=== PATIENT | female | born 1940 | race Caucasian/White ===

== ENCOUNTER 2019-11-28 14:00 | Outpatient (RCR) | payer MEDICARE, OTHER, SELFPAY ==
--- NOTE | 2019-11-16 10:36 | PTOPEVAL ---
PHYSICAL THERAPY EVALUATION AND PLAN OF CARE 11-16-2019 The PT evaluation was completed for the diagnosis of lumbar pain with radicular into L LE. The plan of treatment is for 2x/week for 2 weeks. Thank you for referring Areli to [facility]. Please review, sign, date and return this plan of care ROSENDO. I agree with and certify that the following plan of care is medically necessary. Referring Physician Date Attending Provider: Kevin Santiago MD *PT Outpatient Evaluation Start: 11/16/19 09:42 Document 11/16/19 09:42 MARY (Rec: 11/16/19 10:30 MARY [id number]) Therapy Assessment Status Assessment Status Assessment Status Evaluation Outpatient Past Medical History Neurological History Hx Neurological Disorders No Significant History Cardiovascular History Hx Cardiac Disorders No Significant History Respiratory History Hx Respiratory Disorders No Significant History Gastrointestinal History Hx Gastrointestinal Disorders No Significant History Genitourinary History Hx Bladder Surgery Yes: bladder suspension Musculoskeletal History Hx Arthritis Yes: B arthritis feet/pain- foot dr follow and want do surg Hx Joint Replacement Yes: B TKR Endocrine History Hx Endocrine Disorders No Significant History HEENT History Hx Other HEENT Disorders Yes: wear glasses Other History Hx Other Surgeries Yes: B leg vein surgery entire legs > 20 yr ago Evaluation Information Problem Diagnosis low back pain, radicular Onset about one year ago Subjective Information reports gradual increase in Query Text:As Reported By Patient/ back pain; no injury or trauma Family to back; reports recent xrays of her B TKR- no issues with them and B feet- have arthritis and foot dr wants to do surgery- she is holding off on surgery; Previous Treatments Previous Treatments For This Problem no previous PT for LBP Prior Level of Function Activity Level (Last 3 Months) Occupation retired Hand Dominance Right Activity of Daily Living Ability Independent Indoor/Home Mobility Independent Community Mobility Independent Stairs Ability Independent Functional Cognition (Planning, Shopping Independent , Taking Medications) Cooking Yes Cleaning Yes Laundry Yes Shopping Yes Driving Yes Home Setting Home Type House,Multiple Levels Environmental
--- NOTE | 2019-11-30 09:58 | PCPTNOTE ---
PHYSICAL THERAPY DISCHARGE 11-30-2019 Attending Provider: Kevin Santiago MD Patient:Areli Muro Date of :1940 Mrs. Muro has received 3 Physical Therapy sessions, from November 15 to , for the diagnosis of low back pain. She called and canceled her remaining appointments, due to the coronavirus. Her HEP was reviewed with her on the phone. She is to continue with HEP, using heat and stretching to manage her pain. She will be discharged from therapy at this time. The goals were not assessed. Thank you for referring Areli to [facility]. Please review, sign, date and return this discharge summary ROSENDO. I have been updated about the patient's current status and I agree with discharge from the above service at this time. Referring Physician Date
== END 2019-11-30 14:28 | disposition home or self-care (01) ==
LOC: ANHPT 14:00
PROVIDERS: PCP Internal Medicine; Visit Provider Orthopaedic Surgery
DX: M54.16 Radiculopathy, lumbar region (principal); M79.605 Pain in left leg
CPT/HCPCS: 97110; 97140; 97161

== ENCOUNTER 2020-10-03 13:42 | Outpatient (CLI) | payer MEDICARE, SELFPAY ==
--- NOTE | ~2020-10-03 | MM_ITS ---
EXAMINATION: MM screening norma BI w mirian HISTORY: Screening mammogram TECHNIQUE: Craniocaudal and mediolateral oblique 3-D tomosynthesis images were obtained and synthetic 2-D images were generated. CAD analysis was submitted and interpreted. COMPARISON: 720 , 12/30/2017 bilateral digital screening mammogram examinations BREAST PARENCHYMAL COMPOSITION: There are scattered areas of fibroglandular density. FINDINGS: Possible new 4 mm opacity in the central mid left breast on cc view. Recommend diagnostic l eft mammogram, with ultrasound if required. Otherwise there Is no evidence of suspicious mass, calcification, or architectural distortion to sugg est malignancy in either breast. There has been no other suspicious interval change. Bilateral arteri al calcifications. IMPRESSION: 1. Possible new 4 mm opacity, left breast 2. Diagnostic left mammogram is recommended, with ultrasound if required BI-RADS Category 0: Incomplete: Needs additional imaging evaluation. Reviewed, dictated and finalized at location A. 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
--- NOTE | ~2020-10-03 | DEXA_ITS ---
Bone Density Report Name: Areli Muro Age: 80 Sex: Female Ethnicity: White Date of : 1940 Indication: postmenopausal; height loss; Referring Provider: RENUKA DE OLIVEIRA Study: Bone densitometry was performed. Exam Date: October 03, 2020 Accession number: [id number] Bone Density: Region BMD T-score Z-score Classification AP Spine (L1, L2, L3) 1.047 0.3 2.8 Normal Femoral Neck (Left) 0.760 -0.8 1.5 Normal Total Hip (Left) 0.928 -0.1 1.9 Normal Total Hip Bilateral Avg 0.890 -0.4 1.6 Normal Femoral Neck (Right) 0.757 -0.8 1.4 Normal Total Hip (Right) 0.851 -0.7 1.3 Normal World Health Organization criteria for BMD impression classify patients as: Normal (T-score at or above -1.0), Osteopenia (T-score between -1.0 and -2.5), or Osteoporosis (T-score at or below -2.5). 10-year Fracture Risk: FRAX not reported because: All T-scores for Spine Total, Hip Total, Femoral Neck at or above -1.0 Previous Exams: Region Exam Age BMD T-score BMD Change BMD Change Date g/cm2 vs Baseline vs Previous AP Spine(L1, L2, L3) 10/03/2020 80 1.047 0.3 0.173(19.8%)# 0.037(3.7%)* 12/09/2016 76 1.010 -0.1 0.136(15.6%)# 0.136(15.6%)# 02/06/2005 64 0.874 -1.3 Total Hip(Left) 10/03/2020 80 0.928 -0.1 0.144(18.3%)# -0.016(-1.7%) 12/09/2016 76 0.944 0.0 0.160(20.4%)# 0.160(20.4%)# 02/06/2005 64 0.784 -1.3 Total Hip(Right) 10/03/2020 80 0.851 -0.7 0.038(4.7%)# -0.040(-4.5%)* 12/09/2016 76 0.891 -0.4 0.078(9.6%)# 0.078(9.6%)# 02/06/2005 64 0.813 -1.1 *Denotes significance at 95% confidence level, LSC for AP Spine = 0.022 g/cm2, LSC for Total Hip = 0.027 g/cm2 Clinical Information Provided by Patient: Has used the following medications: Vitamin D, Calcium Patient maximum height was 67.0 Menopause Age: 53 No regular weight bearing exercise Onset of menses at age 15 Number of children 3 Impression: The patient has normal bone mass. The BMD for the Total Hip(Right) decreased, changing by -4.5% since the last DXA exam. Discussion: BONE DENSITY IS ABOVE THE MINIMUM DESIRABLE LEVEL AT ALL SKELETAL SITES TESTED. This patient?s bone mineral density is above the minimum desirable level (T-score -1.0 or better) at all sites measured. The patient should follow a healthful lifestyle (good nutrition with adequate calcium and vitamin D, and appropriate weight-bearing exercise). Follow-Up: Consider repeating this study in
== END 2020-10-03 13:43 | disposition home or self-care (01) ==
LOC: ANHIMG 13:46
PROVIDERS: PCP Internal Medicine; Visit Provider Internal Medicine
DX: Z12.31 Encounter for screening mammogram for malignant neoplasm of breast (principal); Z78.0 Asymptomatic menopausal state; R92.8 Other abnormal and inconclusive findings on diagnostic imaging of breast
CPT/HCPCS: 77063; 77067; 77080

== ENCOUNTER 2020-12-03 11:24 | Outpatient (CLI) | payer MEDICARE, OTHER, SELFPAY ==
--- NOTE | ~2020-12-03 | MMUS_ITS ---
EXAMINATION: MM diagnostic norma LT w mirian, US breast LT limited HISTORY: Left breast mass on screening mammogram TECHNIQUE: Additional 3-D tomosynthesis images of the left breast were performed and synthetic 2-D im ages were generated. CAD analysis was submitted and interpreted. High resolution limited left breast ultrasound was performed. COMPARISON: 10/03/2020, 03/28/2019, 12/30/2017 FINDINGS: MAMMOGRAPHIC FINDINGS: No persistent mass is identified with spot compression of the left breast. There is no suspicious arc hitectural distortion or calcification. ULTRASOUND: There is no evidence of focal abnormal solid or cystic mass in the vicinity of the mammographic findi ng in question. A 4 mm cyst is noted at the 5:00 location 3 cm from the nipple. IMPRESSION: 1. No mammographic or sonographic evidence of malignancy. 2. Recommend routine screening mammography in one year. BI-RADS Category 2: Benign finding(s). Reviewed, dictated and finalized at location A. IMPRESSION: 1. No mammographic or sonographic evidence of malignancy. 2. Recommend routine screening mammography in one year. BI-RADS Category 2: Benign finding(s).
== END 2020-12-03 11:25 | disposition home or self-care (01) ==
PROVIDERS: PCP Internal Medicine; Visit Provider Internal Medicine
DX: N60.02 Solitary cyst of left breast (principal)
CPT/HCPCS: 76642; 77061; 77065; G0279

== ENCOUNTER → 2021-06-10 03:12 | Outpatient (CLI) | payer MEDICARE, OTHER, SELFPAY ==
[2021-06-12 07:19] LABS: SARS-CoV-2 RNA PCR Negative
== END ==
PROVIDERS: PCP Internal Medicine; Visit Provider Internal Medicine
DX: Z20.822 Contact with and (suspected) exposure to COVID-19 (principal)
CPT/HCPCS: C9803; U0003; U0005

== ENCOUNTER 2021-12-19 14:33 | Outpatient (CLI) | payer MEDICARE, SELFPAY ==
--- NOTE | ~2021-12-19 | MM_ITS ---
EXAMINATION: MM screening norma BI w mirian HISTORY: Screening TECHNIQUE: Craniocaudal and mediolateral oblique 3-D tomosynthesis images were obtained and synthetic 2-D images were generated. CAD analysis was submitted and interpreted. COMPARISON: Comparison to multiple prior studies sequentially, with oldest reviewed study dated 12/30. BREAST PARENCHYMAL COMPOSITION: There are scattered areas of fibroglandular density. FINDINGS: There is no evidence of suspicious mass, calcification, or architectural distortion to sugg est malignancy in either breast. There has been no suspicious interval change. IMPRESSION: 1. No mammographic evidence of malignancy. 2. Recommend routine screening mammography in one year. BI-RADS Category 1: Negative Reviewed, dictated and finalized at location A.
== END 2021-12-19 14:34 | disposition home or self-care (01) ==
LOC: ANHIMG 14:35
PROVIDERS: PCP Internal Medicine; Visit Provider Internal Medicine
DX: Z12.31 Encounter for screening mammogram for malignant neoplasm of breast (principal)
CPT/HCPCS: 77063; 77067

== ENCOUNTER 2023-01-06 16:46 | Emergency (ER) | payer MEDICARE, SELFPAY ==
--- NOTE | ~2023-01-06 | CT_ITS ---
EXAMINATION: CT lumbar spine wo con DATE: 01/06/2023 17:44 INDICATION: fall 4 weeks ago, L low back pain down leg . TECHNIQUE: Computed tomography (CT) of the lumbar spine was performed without intravenous contrast. A utomated exposure control and iterative reconstruction technique were employed. The dose-length produ ct was 1394.39 mGy-cm. COMPARISON: X-ray L-spine 04/19/2012. FINDINGS: 11 mm intermediate density exophytic left midpole renal lesion. Atherosclerotic calcificati ons. Diverticulosis. Lumbar scoliosis. 5 nonrib-bearing lumbar-type vertebral bodies. Pedicles intact . Normal vertebral body alignment. Vertebral body heights preserved. Multilevel mild-moderate degener ative disc disease. Multilevel severe facet arthropathy. Moderate central canal narrowing at L3-4 and L4-5. No severe neural foraminal narrowing. Left S1 Tarlov cyst. IMPRESSION: No acute fracture or traumatic malalignment in the lumbar spine. Indeterminate left renal lesion, rec ommend timely outpatient CT or MRI, without and with contrast for further evaluation. Reviewed, dictated and finalized at location K. IMPRESSION: No acute fracture or traumatic malalignment in the lumbar spine. Indeterminate left renal lesion, recommend timely outpatient CT or MRI, without and with cont rast for further evaluation.
--- NOTE | ~2023-01-06 | CT_ITS ---
EXAMINATION: CT pelvis wo con DATE: 01/06/2023 18:09 INDICATION: Fall 4 weeks ago, left low back, groin, and hip pain. TECHNIQUE: Computed tomography (CT) of the pelvis was performed without intravenous contrast. Automat ed exposure control and iterative reconstruction technique were employed. The dose-length product was 822.93 mGy-cm. Sagittal and coronal reformats from this pelvic examination were included with the co ncurrent CT lumbar spine examination. COMPARISON: X-ray right hip, 11/11/2010. FINDINGS: Uncomplicated small fat-containing umbilical hernia. Atherosclerotic arterial calcification s. Diverticulosis. Lumbar degenerative disc disease. Left S1 Tarlov cyst. Moderate osteitis pubis. Os teopenia. No fracture or dislocation. Moderate right and mild left SI joint degenerative change. Mild bilateral hip osteoarthritis. No significant soft tissue contusion or hematoma. IMPRESSION: No acute osseous finding in the pelvis Reviewed, dictated and finalized at location K.
[2023-01-06 16:54] VITALS: BP 149/70; PULSE 55; RESP 18; TEMP 36.7; O2SAT 99
--- NOTE | 2023-01-06 17:04 | ED.EXTPRO ---
HPI - Extremity Problem General Chief complaint: Extremity Problem,Nontraumatic <CARMITA Leal Last Filed: 01/07/23 02:07> Stated complaint: back pain, leg pain <CARMITA Leal Last Filed: 01/07/23 02:07> Time Seen by Provider: 01/06/23 17:03 <CARMITA Leal Last Filed: 01/07/23 02:07> Source: patient <CARMITA Leal Last Filed: 01/07/23 02:07> Mode of arrival: ambulatory <CARMITA Leal Last Filed: 01/07/23 02:07> Limitations: no limitations <CARMITA Leal Last Filed: 01/07/23 02:07> History of Present Illness HPI Narrative: Patient is an 82 y/o female who presents to the ED with c/o L low back pain. Patient reports she fell and landed directly on her L hip/buttocks 4-6 weeks ago. She was not medically evaluated at that time. Patient had pain in her left hip initially, but was able to ambulate. Over the last 1-1.5 weeks, patient has developed pain in her left low back, radiating to her left buttock and down her left posterior leg. Pain worse over past 2-3 days, aggravated with ambulating, sitting, bending. Denies any alleviating factors. She has been taking Tylenol without much relief. Denies any new injury. Denies weakness in her lower extremities, bowel or bladder incontinence, saddle anesthesia, numbness, abdominal pain. <CARMTIA Leal Last Filed: 01/07/23 02:07> Related Data Home medications: Home Medications Medication Instructions Recorded Confirmed aspirin 81 mg tablet,delayed 81 mg PO DAILY 08/23/19 09/25/22 release (Aspir-) cholecalciferol (vitamin D3) 125 5,000 unit PO DAILY 08/23/19 09/25/22 mcg (5,000 unit) capsule magnesium oxide 400 mg PO DAILY 08/23/19 09/25/22 calcium carbonate 500 mg calcium 500 mg PO BID 10/31/19 09/25/22 (1,250 mg) tablet (Oyster Shell Calcium) multivitamin 1 tablet PO DAILY 10/31/19 09/25/22 inulin 2 gram chewable tablet g PO DAILY 09/25/22 09/25/22 (Fiber Gummies) melatonin 5 mg capsule mg PO DAILY 09/25/22 09/25/22 <Elisa Wang PA-C - Last Filed: 01/07/23 02:07> Allergies/Adverse reactions: Allergies Allergy/AdvReac Type Severity Reaction Status Date / Time Penicillins Allergy Unknown hives Verified 09/25/22 09:41 procaine Allergy Unknown pass out Verified 09/25/22 09:41 Sulfa (Sulfonamide Allergy Unknown swelling Verified 09/25/22 09:41 Antibiotics) and itching <Elisa Wang PA-C - Last Filed: 01/07/23 02:07> Review of Systems Review of Systems: CONSTITUTIONAL: Denies fever, chills, or sweats. CARDIOVASCULAR: Denies chest pain. RESPIRATORY: Denies dyspnea. GASTROINTESTINAL: Denies abdominal pain, nausea, vomiting GENITOURINARY: Denies dysuria or hematuria. MUSCULOSKELETAL: See HPI. NEUROLOGIC: See HPI. <Elisa Wang PA-C - Last Filed: 01/07/23 02:07> All systems reviewed & are unremarkable except as noted in HPI and below <Elisa Wang PA-C - Last Filed: 01/07/23 02:07> [facility] Past Medical History Medical History: Medical History Allergies History of back problems History of gout Hypertension Kidney disease Skin problem <Elisa Wang PA-C - Last Filed: 01/07/23 02:07> Surgical History Surgical History: Surgical History H/O breast surgery (~1985) 1986 History of total bilateral knee replacement <Elisa Wang PA-C - Last Filed: 01/07/23 02:07> Family History Family History: Family History Father Cerebrovascular accident, Onset Age: 80 Mother Family history of lung disease, Onset Age: 75 Family history of lung cancer Cancer Grandparent Heart disease Other Family history of tremor <Elisa Wang, P
[2023-01-06] MEDS: IBUPROFEN 400 MG TABLET PO (17:49)
== END 2023-01-06 20:06 | disposition home or self-care (01) ==
PROVIDERS: Emergency Provider Physician Assistant; PCP Family Medicine
DX: M54.42 Lumbago with sciatica, left side (principal); N28.89 Other specified disorders of kidney and ureter; I10 Essential (primary) hypertension; M10.9 Gout, unspecified; Z96.653 Presence of artificial knee joint, bilateral; Z79.82 Long term (current) use of aspirin; Z79.4 Long term (current) use of insulin
CPT/HCPCS: 72131; 72192; 99284; A9270

== ENCOUNTER 2023-01-14 09:25 | Outpatient (CLI) | payer MEDICARE, SELFPAY ==
--- NOTE | ~2023-01-14 | CT_ITS ---
EXAMINATION: CT abdomen pelvis wo/w con DATE: 01/14/2023 10:49 INDICATION: 11 mm indeterminate exophytic lesion at the midpole the left kidney. TECHNIQUE: Computed tomography (CT) of the abdomen and pelvis was performed without and with 100 mL O mnipaque-350 intravenous contrast. Automated exposure control and iterative reconstruction technique were employed. The dose-length product was 1108.77 mGy-cm. COMPARISON: CT dated 01/06/2023 FINDINGS: Calcified left lower lobe nodule along with a few small splenic calcifications consistent with old gr anulomatous disease. Minimal bibasilar atelectasis. Heart size is normal. Atherosclerotic coronary ar dafne calcifications. No pericardial or pleural effusion. Small sliding-type hiatal hernia. Low densit y hepatic cysts the larger measuring 1.4 cm the left hepatic lobe. Gallbladder, pancreas and bilatera l adrenal glands are normal. 1.3 cm cyst in the left kidney and 5 mm cyst at the periphery of the rig ht kidney. There is a mildly lobular contour to the left kidney which may account for the artifactual appearance of an exophytic lesion on prior noncontrast study. No concerning renal lesions identified . A few diverticula along the sigmoid colon without adjacent inflammatory stranding to suggest divert iculitis. No bowel obstruction. What may be the normal appendix is seen along the posterior inferior margin of the cecum. There is no pericecal infiltration to suggest acute appendicitis. Tiny fat-conta ining umbilical hernia and small bilateral fat-containing inguinal hernias. No free intraperitoneal g as or fluid. No pathologically enlarged abdominal or pelvic lymphadenopathy. There is some fatty atro phy of the bilateral gluteus medius and minimus muscles with proximal retraction of the myotendinous junctions consistent with likely chronic partial tears of the more distal tendons. Mild thoracolumbar levoscoliosis with moderate spondylosis. IMPRESSION: 1. Couple simple appearing bilateral renal cysts. The lesion of concern on prior noncontrast study ap pears to result from a normal mildly lobular contour to the left kidney. 2. Small sliding-type hiatal hernia. 3. Tiny fat-containing umbilical and small fat-containing bilateral inguinal hernias. 4. Findings suggesting chronic partial tears of the bilateral diffuse medius and minimus tendons. Reviewed, dictated and finalized at location L. IMPRESSION: 1. Couple simple appearing bilateral renal cysts. The lesion of concern on prio r noncontrast study appears to result from a normal mildly lobular contour to t he left kidney. 2. Small sliding-type hiatal hernia. 3. Tiny fat-containing umbilical and small fat-containing bilateral inguinal he rnias. 4. Findings suggesting chronic partial tears of the bilateral diffuse medius an d minimus tendons.
[2023-01-14 10:35] LABS: Estimated Glomerular Filt Rate 48
== END 2023-01-14 09:26 | disposition home or self-care (01) ==
PROVIDERS: PCP Family Medicine; Visit Provider Nurse Practitioner
DX: N28.89 Other specified disorders of kidney and ureter (principal); K44.9 Diaphragmatic hernia without obstruction or gangrene; K42.9 Umbilical hernia without obstruction or gangrene
CPT/HCPCS: 74178; Q9967

== ENCOUNTER → 2023-01-21 13:03 | Outpatient (CLI) | payer MEDICARE, OTHER, SELFPAY ==
--- NOTE | ~2023-01-21 | XR_ITS ---
XR lumbar spine 2-3V 01/21/2023 13:32 Indication: Back pain Procedure: 3 views lumbar spine Comparison: No prior studies for comparison. Findings: There is disc narrowing at all lumbar levels. There is levoscoliosis centered at the thorac olumbar junction. There are prominent marginal osteophytes at L2-3 through L4-5. There is multilevel facet hypertrophy. Sacral foramen are symmetric. No acute fracture or traumatic m alalignment. Vertebral body heights are maintained. Impression: 1: Severe lumbar spondylosis with levoscoliosis. Reviewed, dictated and finalized at location L. Impression: 1: Severe lumbar spondylosis with levoscoliosis.
== END ==
PROVIDERS: PCP Family Medicine; Visit Provider Nurse Practitioner
DX: M47.816 Spondylosis without myelopathy or radiculopathy, lumbar region (principal)
CPT/HCPCS: 72100

== ENCOUNTER 2023-04-26 12:16 | Outpatient (CLI) | payer MEDICARE, SELFPAY ==
--- NOTE | ~2023-04-26 | CT_ITS ---
EXAMINATION: CT brain wo con DATE: 04/26/2023 12:37 INDICATION: Other amnesia. TECHNIQUE: Computed tomography (CT) of the head was performed without intravenous contrast. The mA wa s adjusted according to patient size. Iterative reconstruction technique was employed. The dose-lengt h product was 605.33 mGy-cm. COMPARISON: None FINDINGS: There is no intracranial hemorrhage, acute infarction, or abnormal intracranial mass lesion . The ventricles are normal in size. The orbits are normal. 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 The mastoid air cells are normal. IMPRESSION: 1. Normal brain. 2. Chronic sinusitis. Reviewed, dictated and finalized at location A.
== END 2023-04-26 12:17 | disposition home or self-care (01) ==
PROVIDERS: PCP Family Medicine; Visit Provider Family Medicine
DX: R06.83 Snoring (principal); R41.3 Other amnesia; R41.89 Other symptoms and signs involving cognitive functions and awareness; J32.9 Chronic sinusitis, unspecified
CPT/HCPCS: 70450

== ENCOUNTER 2023-07-06 07:59 | Outpatient (CLI) | payer MEDICARE, SELFPAY ==
--- NOTE | ~2023-07-06 | MM_ITS ---
EXAMINATION: MM screening norma BI w mirian HISTORY: Screening mammogram TECHNIQUE: Craniocaudal and mediolateral oblique 3-D tomosynthesis images were obtained and synthetic 2-D images were generated. CAD analysis was submitted and interpreted. COMPARISON: 12/19/2021 bilateral screening mammogram 12/03/2020 diagnostic left mammogram and limited left breast ultrasound 10/03/2020, 03/28/2019 bilateral screening mammogram examinations BREAST PARENCHYMAL COMPOSITION: There are scattered areas of fibroglandular density FINDINGS: No suspicious mass, architectural distortion, malignant calcification, skin thickening or r etraction of either breast is detected. There are low-density benign appearing circumscribed opacities including the following: Right breast axillary tail: 3.4 x 6.5 mm circumscribed low-density benign-appearing intramammary lymp h node, with radiolucent hilus Right breast: 3.3 x 4 mm circumscribed opacity with suggestion of a radiolucent hilus, possibly a nilton ign intramammary lymph node. Left breast: 2.8 x 4.3 mm circumscribed low-density opacity in the lower outer quadrant, benign in ap pearance IMPRESSION: 1. Benign findings 2. Recommend routine screening mammography in one year. BI-RADS Category 2: Benign finding(s). Reviewed, dictated and finalized at location A.
== END 2023-07-06 08:00 | disposition home or self-care (01) ==
LOC: ANHIMG 08:00
PROVIDERS: PCP Nurse Practitioner; Visit Provider Family Medicine
DX: Z12.31 Encounter for screening mammogram for malignant neoplasm of breast (principal); R92.8 Other abnormal and inconclusive findings on diagnostic imaging of breast
CPT/HCPCS: 77063; 77067

== ENCOUNTER 2023-08-19 11:40 | Outpatient (CLI) | payer MEDICARE, SELFPAY ==
--- NOTE | ~2023-08-19 | DEXA_ITS ---
Bone Density Report Name: GÓMEZ KHOURY Age: 83 Sex: Female Ethnicity: White Date of : 1940 Indication: postmenopausal; screening for osteoporosis; height loss; Referring Provider: MICHELLE HERNANDEZ Study: Bone densitometry was performed. Exam Date: August 19, 2023 Accession number: [id number] Bone Density: Region BMD T-score Z-score Classification AP Spine(L1, L2, L3) 1.139 1.1 3.8 Normal Femoral Neck (Left) 0.703 -1.3 1.1 Osteopenia Total Hip (Left) 0.839 -0.8 1.3 Normal Femoral Neck (Right) 0.680 -1.5 0.9 Osteopenia Total Hip (Right) 0.824 -1.0 1.2 Normal Total Hip Mean 0.831 -0.9 1.3 Normal World Health Organization criteria for BMD impression classify patients as: Normal (T-score at or above -1.0), Osteopenia (T-score between -1.0 and -2.5), or Osteoporosis (T-score at or below -2.5). 10-year Fracture Risk(1): Major Osteoporotic Fracture 13% Hip Fracture 3.2% Reported Risk Factors: [place] (), Neck BMD=0.680, BMI=33.0 (1) FRAX(R) Version 3.08. Fracture probability calculated for an untreated patient. Fracture probability may be lower if the patient has received treatment. Previous Exams: Region Exam Age BMD T-score BMD Change BMD Change Date g/cm2 vs Baseline vs Previous AP Spine (L1-L3) 08/19/2023 83 1.139 1.1 0.129 (12.8%)* 0.092 (8.8%)* 10/03/2020 80 1.047 0.3 0.037 (3.7%)* 0.037 (3.7%)* 12/09/2016 76 1.010 -0.1 Total Hip(Left) 08/19/2023 83 0.839 -0.8 -0.106 (-11.2% -0.089 (-9.6%) 10/03/2020 80 0.928 -0.1 -0.016 (-1.7%) -0.016 (-1.7%) 12/09/2016 76 0.944 0.0 Total Hip(Right) 08/19/2023 83 0.824 -1.0 -0.067 (-7.5%) -0.027 (-3.2%) 10/03/2020 80 0.851 -0.7 -0.040 (-4.5%) -0.040 (-4.5%) 12/09/2016 76 0.891 -0.4 *Denotes significance at 95% confidence level, LSC for AP Spine = 0.022 g/cm2, LSC for Total Hip = 0.027 g/cm2 Clinical Information Provided by Patient: Has used the following medications: Vitamin D, Calcium Patient maximum height was 67 Menopause Age: 56 Drinks caffeinated beverages Onset of menses at age 15 Number of children 3 Impression: The patient has low bone mass, based on the Right Femoral Neck T-score. The patient has an estimated ten-year risk of hip fracture of 3.2% and an estimated ten-year risk of major fracture of 13%, based on the WHO FRAX algorithm. The BMD for the Total Hip(Left) decreased, changing by -9.6% sin
== END 2023-08-19 11:41 | disposition home or self-care (01) ==
PROVIDERS: PCP Nurse Practitioner; Visit Provider Family Medicine
DX: M85.89 Other specified disorders of bone density and structure, multiple sites (principal); Z78.0 Asymptomatic menopausal state
CPT/HCPCS: 77080

== ENCOUNTER 2025-01-19 07:52 | Outpatient (CLI) | payer MEDICARE, SELFPAY ==
--- OUTSIDE RECORDS SUMMARY | 2025-01-19 07:55 | XMS_ITS | CONTINUITY OF CARE DOCUMENT ---
Author Name charleen villaseñor Address Unknown Organization [facility] Address [address] [place] [address] Phone [phone] Care Team Providers Care Clinical Nurse Manager Name Role Phone Chacorta Valdes MD Unavailable [phone] Chacorta Valdes MD Unavailable [phone] INSURANCE PROVIDERS Payer name Policy type / Coverage type [place] red republican ID [employer] [id number] [place] MEDIC[place] Medicare [id number] TREATMENT PLAN Date Name Covid Antibody IgA ( LC) Covid Antibody IgM ( LC)
--- OUTSIDE RECORDS SUMMARY | 2025-01-19 07:55 | XMS_ITS | Clinical Summary ---
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 Gender Identity Not on file Sexual Orientation Not on file Last Filed Vital Signs Vital Sign Reading Time Taken Comments Blood Pressure 140/88 12/05/2013 8:52 AM CDT Pulse - - Temperature - - Respiratory Rate - - Oxygen Saturation - - Inhaled Oxygen Concentration - - Weight 103.9 kg (229 lb) 12/05/2013 8:52 AM CDT Height 166.4 cm (5' 5.5 ) 12/05/2013 8:52 AM CDT Body Mass Index 37.53 12/05/2013 8:52 AM CDT Plan of Treatment Health Maintenance Due Date Last Done Comments Zoster Vaccines (1 of 2) 1991 Dexa Scan (General) 2006 DTaP, Tdap and Td Vaccines ( 1 - Tdap) 05/12/2011 05/11/2011 Pneumococcal Vaccine: 50+ Ye ars (2 of 2 - PCV) 05/11/2012 05/11/2011 RSV Immunization or 60+ Years (1 - 1-dose 75+ series) 2016 COVID-19 Vaccine ( - 2023-2 5 season) 2024 Meningococcal B Vaccine Aged Out No l onger eligible based on patient's age to complete this topic Meningococcal Vaccine Aged Out No og rain eligible based on patient's age to complete this topic RSV Immunizations Under 20 Months Aged Out No longer eligible based on patient's age to complete this topic
--- OUTSIDE RECORDS SUMMARY | 2025-01-19 07:55 | XMS_ITS | Continuity of Care Document ---
Author Organization [facility] Address [address] [place] [address] Phone Care Team Providers Care Sat Instructor Name Role Phone Lo Mott Unavailable Unavailable Procedures Procedure Date Eye Exam & Treatment Office/outpatient Visit, Est BF Polycarb Sphcyl Gary To +/-4d .12-2d [facility] [employer] Purchases [...] Diagnoses Date Provider Providers Copied on Encounter [facility], [address] [place] [address] [address], [place], [place], [id number], [place] tel:[phone] [facility] [place] No Information 4-200 9 Tiera Blanchard. [address] , [address], [place], [address], [place]. tel:[phone] Office/outpat ient Visit, Est [facility], [address] [place] [address] [address], [place], [place], [id number], [place] tel:[phone] [facility] [place] No Information Sep-1 8-200 8 Tiera Workman [address] , [address], [place], [place], [facility], . tel:[phone] [facility], [address], [place], [place], [id number], [place] tel:[phone] [facility] [place] No Information Mar-2 4-200 8 [facility] [employer] . [address], [address], [place], [place], [id number], [place]. tel:[phone] Referring Provider: Lo Simpson, [address] [place], [place] [address]ate [address], [place], [place], [facility]. tel:[phone] sulting Provider: Keegan Dias [address] [place], [place] [address]ate [place], [place], [place], [facility]. tel:[phone] [facility], [address], [place], [place], [id number], [place] tel:[phone] [facility] [place] No Information Mar-2 0-200 8 Tiera Workman [facility] , [address], [place], [place], [facility], [place]. tel:[phone] [facility], [address], [place], [place], [id number], [place] tel:[phone] [facility] No Information Feb-2 1-200 8 Tiera Workman [address] [place] , [address], [place], [place], [facility], [place]. tel:[phone] [facility], [address], [place], [place], [id number], [place] tel:[phone] [facility] No Information Feb-1 4-200 8 Tiera Workman [address], [address], [place], [address], [place]. tel:[phone] [facility], [address], [place], [place], [id number], [place] tel:[phone] [facility] No Information 3-200 8 Tiera Blanchard. [address] , [address], [place], [place], [facility], [place]. tel:[phone] Office/outpat ient Visit, [facility], [address], [place], [place], [id number], [place] tel:[phone] [facility] No Information 1200 8 Tiera Blanchard. [address] [place] , [address], [place], [facility], [place]. tel:[phone] Referring Provider: Lo Simpson, [address], [place], [facility]. tel:[phone] [facility], [address] [place] [address] [address], [place], [place], [id number], [place] tel:[phone] [facility] No Information Dec-2 0-200 7 Tiera Blanchard. [address] , [address], [place], [facility], [place]. tel:[phone] [facility], [address], [place], [place], [id number], [place] tel:[phone] [facility] No Information 6-200 7 Hailee Kuhn. [address], [place], [place], [id number], [place]. tel:[phone] [facility], [address], [place], [place], [id number], [place] tel:[phone] [facility] No Information Apr-2 6-200 7 Tiera Blanchard. [address] , [address], [place], [address], [place]. tel:[phone] Family History Family Member Type Diagnosis Age At Onset No Information Payers Payer name Insurance type Covered republican ID Authoriza tion(s) Medicare [facility] [id number] [facility] [id number] Social History Type Description Quantity Date Captured [...]
--- OUTSIDE RECORDS SUMMARY | 2025-01-19 07:56 | XMS_ITS | Continuity of Care Document ---
Author Organization [employer] Address [address] [place] [address] Phone Care Team Providers Care Electronic System Engineer Name Role Phone Leo Nava NP Unavailable [...] + Trivalent OFFICE/OUTPATIENT VISIT, EST OFFICE/OUTPATIENT VISIT, [facility] Advance Directives Directive Yes / No Effective Date File Name No Information Encounters Encounter Description Practice Location Reason(s) For Visit Diagnoses Date Provider Providers Copied on Encounter [facility], [address], [place], [place], [id number], [place] tel:[phone] [facility] Spot on buttocks (chief complaint) Abscess of right buttockCellulitis of buttock Sep-2 3 Elijah Cervantes. [address] [place], [address]. tel:[phone] Referring Provider: Leo Nava, [address] [place], [address]. tel:[phone] OFFICE/OUTPAT IENT VISIT, [facility], [address], [place], [place], [id number], [place] tel:[phone] [facility] UTI (chief complaint) Acute UTIHematuria, unspecified type Sep-1 9 Elijah Cervantes. [address] [place], [address]. tel:[phone] Referring Provider: Leo Nava, [address] [place], [address]. tel:[phone] [facility], [address], [place], [place], [id number], [place] tel:[phone] [facility] No Information Jun- 7 Michael Hernandes. [address] [place] [address], [address], [place]. tel:[phone] Referring Provider: Greta Simpson, [address] [place] [address], [address]. tel:[phone] OFFICE/OUTPAT IENT VISIT, [facility], [address] [place] [address], [id number], tel:[phone] [facility] thumb darken (chief complaint) Thumb injury, right, initial encounter 7 Michael Hernandes. [address] [place] [address], [address], [place]. tel:[phone] Referring Provider: Greta Simpson, [address] [place] [address], [address]. tel:[phone] [facility], [address], [id number], tel:[phone] [facility] No Information 5 Michael Hernandes. [address] [place] [address], [address], [place]. tel:[phone] Referring Provider: Greta Simpson, [address] [place] [address], [address]. tel:[phone] [facility], [address], [id number], tel:[phone] [facility] No Information 4 Elijah Cervantes. [address] [place], [address]. tel:[phone] Referring Provider: Chapo Saeed, [address] [place], [address]. tel:[phone] OFFICE/OUTPAT IENT VISIT, [facility], [address] [place] [address], [id number], tel:[phone] [facility] No Information 2 Elijah Cervantes. [address] [place], [address]. tel:[phone] Referring Provider: Leo Nava, [address] [place], [address]. tel:[phone] OFFICE/OUTPAT IENT VISIT, [facility], [address], [place], [place], [id number], tel:[phone] [facility] No Information Feb-0 8-201 0 Elijah Cervantes. [address] [place], [address]. tel:[phone] Referring Provider: Andres Younger, [address], [place], [address] . tel:[phone] Family History Family Member Type Diagnosis Age At Onset No Information Immunizations Vaccine Date Status Comments Influenza, seasonal, injectable administered Source: New Immuniza tion Record Influenza, seasonal, injectable administered Source: New Immuniza tion Record Flu Vacc 3yr + PCC administered Source: N ew Immunization Record Payers Payer name Insurance type Covered republican ID Authoriza tion(s) Medicare NGS 16112 ALL OTHERS MB [id number] [employer] Gold Plus [id number] Medicare NGS [id number] ALL OTHERS MB [id number] [place] [id number] Medicare NGS [id number] ALL OTHERS MB [id number] [employer] [place] [id number] Medicare [place] [id number] ALL OTHERS MB [id number] [employer] [place] CI [id number] Social History Type Description Quantity Date Captured [...] using PRID on it at home,is from [place] and is visiting this area Spot on [...] Mental Status Date Cognitive Assessment Orientation - [place] ed to time, place, person, situation. Patient Care Teams Name Effective Dates (start - stop) Status Members No Information
[2025-01-19 08:13] LABS: Hematocrit 45.1 % (37.0-47.0); Hemoglobin 14.1 g/dL (12.0-15.0); Mean Corpuscular HGB Conc 31.3 g/dl (32-36); Mean Corpuscular Volume 99.1 fl (80-100); Mean Platelet Volume 9.9 fl (7.4-10.4); Platelet Count Result 219 k/mm3 (150-375); Red Blood Count 4.55 M/mm3 (4.2-5.4); Red Cell Distribution Width 13.1 % (11.5-14.5); White Blood Count 4.2 K/mm3 (4.5-10.0)
[2025-01-19 08:23] LABS: Alanine Aminotransferase 17 U/L (6-35); Albumin Level 4.3 g/dL (3.5-5.1); Alkaline Phosphatase 60 U/L (38-126); Anion Gap 5 mmol/L (4-12); Aspartate Amino Transferase 23 U/L (14-36); Bilirubin,Total 0.8 mg/dL (0.2-1.3); Blood Urea Nitrogen 18 mg/dL (7-17); Calcium 9.2 mg/dL (8.4-10.2); Carbon Dioxide 30 mmol/L (22-30); Chloride 105 mmol/L (98-107); Cholesterol 204 mg/dL (0-200); Estimated Glomerular Filt Rate 58; Glucose 99 mg/dL (65-110); HDL Direct 72 mg/dL; Potassium 4.4 mmol/L (3.4-5.0); Sodium 140 mmol/L (137-145); Triglycerides 99 mg/dL (<150)
[2025-01-19 08:39] LABS: LDL Cholesterol Direct 105 mg/dL
[2025-01-19 10:24] LABS: Hemoglobin A1C 5.7 % (<5.7)
== END 2025-01-19 07:53 | disposition home or self-care (01) ==
PROVIDERS: PCP Nurse Practitioner; Visit Provider Nurse Practitioner
DX: E78.5 Hyperlipidemia, unspecified (principal); R73.03 Prediabetes
CPT/HCPCS: 36415; 80053; 80061; 83036; 85027

== ENCOUNTER 2025-06-26 15:43 | Outpatient (CLI) | payer MEDICARE, SELFPAY ==
[2025-06-26 16:14] LABS: Hematocrit 42.0 % (37.0-47.0); Hemoglobin 13.5 g/dL (12.0-15.0); Mean Corpuscular HGB Conc 32.1 g/dl (32-36); Mean Corpuscular Hemoglobin 31.2 pg (26-34); Mean Corpuscular Volume 97.0 fl (80-100); Platelet Count Result 211 k/mm3 (150-375); Red Blood Count 4.33 M/mm3 (4.2-5.4); White Blood Count 5.7 K/mm3 (4.5-10.0)
[2025-06-26 16:17] LABS: Add Urine Microscopic? YES; Appearance Urine Cloudy (Clear); Glucose Urine UA Negative (Negative); Leukocyte Esterase Ur 2+ LEU/UL (Negative); Nitrate Urine Negative (Negative); Non Pathogenic Casts 0-2; Specific Grav Ur 1.019 (1.001-1.035)
[2025-06-26 16:28] LABS: Alanine Aminotransferase 13 U/L (6-35); Albumin Level 4.2 g/dL (3.5-5.1); Alkaline Phosphatase 53 U/L (38-126); Anion Gap 6 mmol/L (4-12); Aspartate Amino Transferase 24 U/L (14-36); Bilirubin,Total 0.5 mg/dL (0.2-1.3); Blood Urea Nitrogen 19 mg/dL (7-17); Calcium 9.0 mg/dL (8.4-10.2); Carbon Dioxide 29 mmol/L (22-30); Chloride 100 mmol/L (98-107); Estimated Glomerular Filt Rate 49; Glucose 93 mg/dL (65-110); Potassium 4.2 mmol/L (3.4-5.0); Sodium 135 mmol/L (137-145); Total Protein 6.9 g/dL (6.3-8.2)
--- OUTSIDE RECORDS SUMMARY | 2025-06-26 17:16 | XMS_ITS | Clinical Summary ---
Author Organization 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 Gender Identity Not on file Sexual Orientation Not on file Last Filed Vital Signs Vital Sign Reading Time Taken Comments Blood Pressure 140/88 12/05/2013 8:52 AM CDT Pulse - - Temperature - - Respiratory Rate - - Oxygen Saturation - - Inhaled Oxygen Concentration - - Weight 103.9 kg (229 lb) 12/05/2013 8:52 AM CDT Height 166.4 cm (5' 5.5) 12/05/2013 8:52 AM CDT Body Mass Index [...] COVID-19 Vaccine ( - 2023-2 5 season) 2025 Influenza Adult (#1) 2025 06/06/2013 Meningococcal B Vaccine Aged Out No l onger eligible based on patient's age to complete this topic Meningococcal Vaccine Aged Out No og rain eligible based on patient's age to complete this topic RSV Immunizations Under 20 Months Aged Out No longer eligible based on patient's age to complete this topic
== END 2025-06-26 15:44 | disposition home or self-care (01) ==
LOC: ANHLAB 15:45
PROVIDERS: PCP Nurse Practitioner; Visit Provider Nurse Practitioner
DX: E78.5 Hyperlipidemia, unspecified (principal); I10 Essential (primary) hypertension; R41.82 Altered mental status, unspecified
CPT/HCPCS: 36415; 80053; 81001; 85027

== ENCOUNTER 2025-07-11 11:12 | Outpatient (CLI) | payer MEDICARE, SELFPAY ==
--- OUTSIDE RECORDS SUMMARY | 2009-06-06 03:00 | XMS_ITS | Continuity of Care Document ---
Author Organization [facility] [place] [address] [place] [address] Phone Care Team Providers Care Triage Specialist Name Role Phone Lo Mott Unavailable Unavailable Procedures Procedure Date Eye Exam & Treatment Office/outpatient Visit, Est BF Polycarb Sphcyl [place] To +/-4d .12-2d Vision Svcs Frames Purchases Frames Deluxe Anti-reflective Coating Polycarb Lens Per Lens Scratch Resistant Coating Post-op Follow-up Visit Post-op Follow-up Visit Post-op Follow-up Visit Remove Cataract, Insert Lens Office/outpatient Visit, Est Echo Exam Of Eye Eye Exam & Treatment Refraction Eye Exam & Treatment Eye Exam & Treatment Advance Directives Directive Yes / No Effective Date File Name No Information Encounters Encounter Description Practice Location Reason(s) For Visit Diagnoses Date Provider Providers Copied on Encounter [facility], [address] [place] [address] [address], [place], [place], [id number], [place] tel:[phone] [facility] [place] No Information 4-200 9 Tiera Blanchard. [address] [facility] , [address], [place], [address], [place]. tel:[phone] Office/outpat ient Visit, Est [facility], [address] [place] [address] [address], [place], [place], [id number], [place] tel:[phone] [facility] [place] No Information Sep-1 8-200 8 Tiera Workman [address] [facility] [place] , [address], [place], [place], [facility] [place][note 2], . tel:[phone] [facility], [address], [place], [place], [id number], [place] tel:[phone] [facility] [place] No Information Mar-2 4-200 8 [facility] . [address] [facility], [address], [place], [place], [id number], [place]. tel:[phone] Referring Provider: Lo Simpson, [address] [place], [place] [address]ate [place] [address], [place], [place], [facility] [place][note 2]. tel:[phone] sulting Provider: Keegan Dias [address] [place], [place] [address]ate [place], [place], [place], [facility] [place][note 2]. tel:[phone] [facility], [address], [place], [place], [address], [place] tel:[phone] [facility] [place] No Information Mar-2 0-200 8 Tiera Workman [facility] , [address], [place], [place], [facility] [place][note 2], [place]. tel:[phone] [facility], [address], [place], [place], [id number], [place] tel:[phone] [facility] No Information Feb-2 1-200 8 Tiera Workman [address] [facility] [place] , [address], [place], [place], [facility] [place][note 2], [place]. tel:[phone] [facility], [address], [place], [place], [id number], [place] tel:[phone] [facility] No Information Feb-1 4-200 8 Tiera Workman [address], [address], [place], [address], [place]. tel:[phone] [facility], [address], [place], [place], [id number], [place] tel:[phone] [facility] No Information 3-200 8 Tiera Blanchard. [address] [facility] , [address], [place], [place], [facility] [place][note 2], [place]. tel:[phone] Office/outpat ient Visit, [facility], [address], [place], [place], [address], [place] tel:[phone] [facility] No Information 1200 8 Tiera Blanchard. [address] [facility] [place] , [address], [place], [facility] [place][note 2], [place]. tel:[phone] Referring Provider: Lo Simpson, [address], [place], [facility] [place][note 2]. tel:[phone] [facility], [id number] [place] [address] [address], [place], [place], [address], [place] tel:[phone] [facility] No Information Dec-2 0-200 7 Tiera Blanchard. [address] [facility] , [address], [place], [facility] [place][note 2], [place]. tel:[phone] [facility], [address], [place], [place], [address], [place] tel:[phone] [facility] No Information 6-200 7 Hailee Kuhn. [address], [address], [place], [place], [address], [place]. tel:[phone] [facility], [address], [place], [place], [address], [place] tel:[phone] [facility] No Information Apr-2 6-200 7 Tiera Blanchard. [address] , [address], [place], [address], [place]. tel:[phone] Family History Family Member Type Diagnosis Age At Onset No Information Payers Payer name Insurance type Covered green party ID Authoriza tion(s) Medicare [facility] [id number] [facility] [id number] Social History Type Description Quantity Date Captured Comments Sex Female Smoking Status No Information Chief Complaint And Reason For Visit No Information Reason For Referral Reason For Referral No Information History Of Present Illness Encounter Date Complaint History Of Prese nt Illness No Information Functional Status Date Functional Assessmen t No Information Instructions Date Instruction Additional Infor mation No Information Assessments Type Assessment Date No Information Patient Care Teams Name Effective Dates (start - stop) Status Members No Information
--- OUTSIDE RECORDS SUMMARY | 2023-06-11 04:00 | XMS_ITS | Continuity of Care Document ---
Author Organization [facility] [facility] [employer] Address [address] [place] [address] Phone Care Team Providers Care Wire Wrapping Machine Operator Name Role Phone Leo Nava NP Unavailable Unavailabl e Allergies, Adverse Reactions, Alerts Substance Reaction Status Criticality PROCAINE HCL Active No Information Sulfa (Sulfonamide Antibiotics) Active No Information PENICILLIN Active No Information Medications Medication Instructions Dosage Effective Dates (start - stop) Status Comments doxycycline monohydrate 100 mg tablet take 1 tablet by oral route 2 times every day 100 MG - Active mupirocin 2 % topical ointment apply by topical route 2 times every day a small amount to the affected area Not Available - Active pravastatin 40 mg tablet take 1 tablet by oral route every day 40 MG - Active Pyridium 100 mg tablet take 1 tablet by oral route 3 times every day after meals as needed as needed 100 MG - No Longer Active Cipro 250 mg tablet take 1 tablet by oral route every 12 hours 250 MG - No Longer Active Calcium 500 500 mg calcium (1,250 mg) tablet 1 tablet 3 x day - No Longer Active simvastatin 40 mg tablet take 1 tablet by oral route every day in the evening 40 MG - No Longer Active Procedures Procedure Date URINALYSIS NONAUTO W/O SCOPE OFFICE/OUTPATIENT VISIT, EST Admin influenza virus vac Afluria vacc, Medicare OFFICE/OUTPATIENT VISIT, EST Admin influenza virus vac Fluvirin vacc, 3 yrs & >, im IMMUNIZATION ADMIN FLU VACCINE 3Yrs + Trivalent OFFICE/OUTPATIENT VISIT, EST OFFICE/OUTPATIENT VISIT, [facility] Advance Directives Directive Yes / No Effective Date File Name No Information Encounters Encounter Description Practice Location Reason(s) For Visit Diagnoses Date Provider Providers Copied on Encounter [facility] [employer], [address], [place], [place], [id number], [place] tel:[phone] [facility] Spot on buttocks (chief complaint) Abscess of right buttockCellulitis of buttock Sep-2 3 Elijah Cervantes. [address] [place], [address]. tel:[phone] Referring Provider: Leo Nava, [address] [place], [address]. tel:[phone] OFFICE/OUTPAT IENT VISIT, [facility] [employer], [address], [place], [place], [id number], [place] tel:[phone] [facility] UTI (chief complaint) Acute UTIHematuria, unspecified type Sep-1 9 Elijah Cervantes. [address] [place], [address]. tel:[phone] Referring Provider: Leo Nava, [address] [place], [address]. tel:[phone] [facility] [employer] [facility], [address], [place], [place], [id number], [place] tel:[phone] [facility] No Information Jun- 7 Michael Hernandes. [address] [place] [address], [address], [place]. tel:[phone] Referring Provider: Greta Simpson, [address] [place] [address], [address]. tel:[phone] OFFICE/OUTPAT IENT VISIT, [facility], [address] [place] [address], [id number], tel:[phone] [facility] thumb darken (chief complaint) Thumb injury, right, initial encounter 7 Michael Hernandes. [address] [place] [address], [address], [place]. tel:[phone] Referring Provider: Greta Simpson, [address] [place] [address], [address]. tel:[phone] [facility], [address], [id number], tel:[phone] [facility] No Information 5 Michael Hernandes. [address] [place] [address], [address], [place]. tel:[phone] Referring Provider: Greta Simpson, [address] [place] [address], [address]. tel:[phone] [facility], [address], [id number], tel:[phone] [facility] No Information 4 Elijah Cervantes. [address] [place], [address]. tel:[phone] Referring Provider: Chapo Saeed, [address] [place], [address]. tel:[phone] OFFICE/OUTPAT IENT VISIT, [facility], [address] [place] [address], [id number], tel:[phone] [facility] No Information 2 Elijah Cervantes. [address] [place], [address]. tel:[phone] Referring Provider: Leo Nava, [address] [place], [address]. tel:[phone] OFFICE/OUTPAT IENT VISIT, [facility] [facility], [address], [place], [place], [id number], tel:[phone] [facility] No Information Feb-0 8-201 0 Elijah Cervantes. [address] [place], [address]. tel:[phone] Referring Provider: Andres Younger, [address], [place], [address] . tel:[phone] Family History Family Member Type Diagnosis Age At Onset No Information Immunizations Vaccine Date Status Comments Influenza, seasonal, injectable administered Source: New Immuniza tion Record Influenza, seasonal, injectable administered Source: New Immuniza tion Record Flu Vacc 3yr + PCC administered Source: N ew Immunization Record Payers Payer name Insurance type Covered constitution party ID Authoriza tion(s) Medicare NGS 53740 ALL OTHERS MB [id number] [employer] Gold Plus [id number] Medicare NGS [id number] ALL OTHERS MB [id number] [facility] CI [id number] Medicare NGS [id number] ALL OTHERS MB [id number] [facility] [place] CI [id number] Medicare NGS [id number] ALL OTHERS MB [id number] [facility] [employer] CI [id number] Social History Type Description Quantity Date Captured Comments Alcohol Use Details No Caffeine Use Details coffee Tobacco Use Status Never smoked tobacco 2022 Smoking Status Never smoker Non-Smoking Tobacco Use Details : No Details Available : No Details Available Sex Female Vital Signs Date / Time: Height Weight BMI Pulse Rate Blood Pressure Temperature Respiratory Rate Body Surface Area Head Circumference Head Circ. Percentile Wt./Dann. Percentile BMI percentile Pulse Ox Inhaled Ox 8:47 AM 67.00 in 87.543 kg (193.00 lbs) 30.2 3 kg/m eter (2) 65 /min 136/78 mm[Hg] 97.40 F 16 /min 95 % Chief Complaint And Reason For Visit From encounter dated '06/11/2023 09:00'. Spot on buttocks (chief complaint). Description: Pt states that she noticed a spot on her R buttocks that looked like a pimple but is now like a boil. Reason For Referral Reason For Referral No Information Plan Of Treatment Date Type Action Status Goal Zoster vaccine (1st). Due on due Goal Td vaccine. Due on due Goal DEXA scan. Due on due Goal Tdap. Due on due Goal Influenza vaccine. Due on Oc due Goal Depression screening. Due on due Goal Pneumococcal vaccine. Due on due Goal Unhealthy drug use screening . Due on due History Of Present Illness Encounter Date Complaint History Of Prese nt Illness Comments: c/o pl jm on right bottom that started as a small pimple 2 weeks ago and now is bigger, red and painful, has been using PRID on it at home,is from [place] and is visiting this area Spot on buttocks Pt states that she noticed a spot on her R buttocks that looked like a pimple but is now like a boil. UTI Onset: 2 Days. T he severity of the problem is moderate. Pain scale: 3/10. The problem has worsened. The symptoms are constant. Presenting/Initial symptoms include burning, fever, frequency, hesitancy and urgency. Associated symptoms include fatigue, fever, frequency, hesitancy, pressure and urgency. UTI (comments) c/o pain and bur guzman on urination thumb darken pt states she we ars a thumb ring on right thumb and noticed it starting to swell so took it off before it got swollen more and then it just got dark in color, pt states she dont remember anything happening to it or injury to it. x 1 day ago,no pain,no heat Functional Status Date Functional Assessmen t Pain Score 0/10 Instructions Date Instruction Additional Infor naa keep area clean and dry, do not use peroxide, wash with antibacterial soap and water and allow to dry, then use antibiotic cream prescribedtake meds as directed, if not improved in 1 week RTC here or see her PCP Related to Cellulitis of buttock take meds as directe d, increase fluids, rest Related to Acute UTI rtc 1 week if not improved Relat ed to Acute UTI Levaquin to cover an y possible bite infection Related to Thumb injury, right, initial encounter If no improvement in 48 hrs, jennifer ging Related to Thumb injury, right, initial encounter Assessments Type Assessment Date assessment Abscess of right buttock 2022 assessment Cellulitis of buttock 3 Mental Status Date Cognitive Assessment Orientation - [place] ed to time, place, person, situation. Patient Care Teams Name Effective Dates (start - stop) Status Members No Information
[2025-07-11 12:48] LABS: Add Urine Microscopic? YES; Appearance Urine Cloudy (Clear); Glucose Urine UA Negative (Negative); Leukocyte Esterase Ur 2+ LEU/UL (Negative); Nitrate Urine Negative (Negative); Non Pathogenic Casts 0-2; Specific Grav Ur 1.016 (1.001-1.035)
--- OUTSIDE RECORDS SUMMARY | 2025-07-11 12:49 | XMS_ITS | Clinical Summary ---
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
== END 2025-07-11 11:13 | disposition home or self-care (01) ==
PROVIDERS: PCP Nurse Practitioner; Visit Provider Nurse Practitioner
DX: R30.0 Dysuria (principal)
CPT/HCPCS: 81001

== ENCOUNTER 2025-08-13 08:43 | Outpatient (CLI) | payer MEDICARE, SELFPAY ==
[2025-08-13 10:30] LABS: Cholesterol 196 mg/dL (0-200); HDL Direct 62 mg/dL; Triglycerides 116 mg/dL (<150)
[2025-08-13 10:45] LABS: Hemoglobin A1C 5.9 % (<5.7)
== END 2025-08-13 08:44 | disposition home or self-care (01) ==
LOC: ANHLAB 08:45
PROVIDERS: PCP Nurse Practitioner; Visit Provider Nurse Practitioner
DX: E78.5 Hyperlipidemia, unspecified (principal); R73.03 Prediabetes
CPT/HCPCS: 36415; 80061; 83036

== ENCOUNTER 2025-09-05 13:23 | Outpatient (CLI) | payer MEDICARE, SELFPAY ==
--- NOTE | ~2025-09-05 | XR_ITS ---
XR foot LT min 3V 09/05/2025 13:38 Indication: Left foot pain Procedure: 4 views left foot Comparison: 09/05/2019 Findings: There is moderate-severe osteoarthritis first MTP joint with mild hallux valgus. Lisfranc joint intact. No fracture, subluxation or dislocation. Small degenerative calcaneal enthesophytes. Mild osteoarthritis of the midfoot. 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 Reviewed, dictated and finalized at location O. 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
--- OUTSIDE RECORDS SUMMARY | 2025-09-05 13:27 | XMS_ITS | Clinical Summary ---
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
== END 2025-09-05 13:24 | disposition home or self-care (01) ==
PROVIDERS: PCP Nurse Practitioner; Visit Provider Internal Medicine
DX: M19.072 Primary osteoarthritis, left ankle and foot (principal)
CPT/HCPCS: 73630